=== PATIENT | female | born 1995 | race Two or more races ===

== ENCOUNTER 2024-05-10 10:08 | Emergency (ER) | payer OTHER ==
[~2024-05-10] VITALS: Ht 167.6 cm; Wt 106.8 kg
[2024-05-10] MEDS: SODIUM CHLORIDE 0.9% 1,000 ML IV ONE (10:41)
[2024-05-10] MEDS: KETOROLAC TROMETHAMINE 30 MG/ML VIAL IVP ONE (10:41)
[2024-05-10 10:47] LABS: BASOPHILS % (AUTO) 0.3 % (0.0-2.0); EOSINOPHILS % (AUTO) 3.4 % (1.0-6.0); HEMATOCRIT 42.6 % (36-46); HEMOGLOBIN 14.4 g/dL (12.0-16.0); LYMPHOCYTES # (AUTO) 1.3 K/uL (1.0-4.8); LYMPHOCYTES % (AUTO) 11.2 % (22.0-44.0); MEAN CORPUSCULAR HEMOGLOBIN 29.6 pg (26.0-34.0); MEAN CORPUSCULAR HGB CONC 33.7 G/dL (31.0-37.0); MEAN CORPUSCULAR VOLUME 88 fL (80-100); MONOCYTES # (AUTO) 0.5 K/uL (0.1-1.0); MONOCYTES % (AUTO) 4.4 % (2.0-9.0); NEUTROPHILS # (AUTO) 9.2 K/uL (1.8-7.7); NEUTROPHILS % (AUTO) 80.7 % (40.0-70.0); PLATELET COUNT (AUTO) 209 K/uL (150-450); RED BLOOD CELL COUNT(AUTO) 4.86 MIL/uL (4.00-5.20); RED CELL DISTRIBUTION WIDTH 13.3 % (11.5-14.5); WHITE BLOOD COUNT (AUTO) 11.3 K/uL (4.5-11.0)
[2024-05-10 10:59] LABS: ANION GAP 12 mmol/L (8-16); CALCIUM, TOTAL 8.9 mg/dL (8.8-10.5); CARBON DIOXIDE 22 mmol/L (22-29); CHLORIDE 103 mmol/L (98-107); CREATININE 0.66 mg/dL (0.60-1.30); GLOMERULAR FILTR. RATE CALC > 60 mL/min (>60); GLUCOSE,RANDOM 94 mg/dL (70-110); POTASSIUM 3.7 mmol/L (3.5-5.1); SODIUM SERUM 137 mmol/L (136-145); UREA NITROGEN, BLOOD 7 mg/dL (7-18)
[2024-05-10 11:25] VITALS: TEMP 98.2
[2024-05-10] MEDS: CeFAZolin 1 GM/DEXTROSE 50 ML IV ONE (11:32)
[2024-05-10 12:29] VITALS: BP 118/70; PULSE 81; RESP 18; O2SAT 99
[2024-05-10] MEDS ORDERED: IBUP-1492 PO (13:32)
[2024-05-10] MEDS ORDERED: CEPH-558 PO (13:32)
== END 2024-05-10 13:56 | disposition home or self-care (01) ==
LOC: EMS 10:10
DX: N61.0 Mastitis without abscess (principal); Z90.89 Acquired absence of other organs; Z90.49 Acquired absence of other specified parts of digestive tract
CPT/HCPCS: 99284; 96365; 96361; 96375; 80048; 85025; 36415; J0690; J1885; J7030